=== PATIENT | male | born 1980 | race Caucasian/White ===

== ENCOUNTER 2017-04-17 10:38 | Emergency (ER) | payer OTHER ==
[~2017-04-17] VITALS: Ht 185.4 cm; Wt 95.3 kg
[2017-04-17 10:40] VITALS: BP 120/79
[2017-04-17 11:31] LABS: URINE BILIRUBIN NEGATIVE (Negative); URINE BLOOD NEGATIVE (Negative); URINE COLOR YELLOW; URINE GLUCOSE-RANDOM* NEGATIVE (Negative); URINE KETONES NEGATIVE (Negative); URINE LEUKOCYTES-REFLEX NEGATIVE (Negative); URINE PROTEIN (DIPSTICK) NEGATIVE (Negative); URINE SPECIFIC GRAVITY <= 1.005 (1.003-1.035); URINE UROBILINOGEN 0.2 E.U./dl (0.2-1.0)
[2017-04-17] MEDS ORDERED: NAPROSYN500 MG PO (11:43)
[2017-04-17] MEDS ORDERED: NORFLEX100 MG PO (11:43)
[2017-04-17] MEDS ORDERED: ULTRAM 50MG TAB50 MG PO (11:43)
== END 2017-04-17 11:57 | disposition home or self-care (01) ==
LOC: ER 10:38
PROVIDERS: Emergency Medicine
DX: S39.012A Strain of muscle, fascia and tendon of lower back, initial encounter (principal); X50.1XXA Overexertion from prolonged static or awkward postures, initial encounter; Y93.89 Activity, other specified; Y92.89 Other specified places as the place of occurrence of the external cause; Y99.8 Other external cause status